=== PATIENT | female | born 1940 | race Caucasian/White ===

== ENCOUNTER 2019-01-13 09:36 | Emergency (ER) | payer OTHER ==
[~2019-01-13] VITALS: Ht 154.9 cm; Wt 54.4 kg
[2019-01-13] MEDS ORDERED: ONDANSETRON HCL 4 MG/2 ML VIAL IV ONE (10:15)
[2019-01-13 10:47] LABS: Hematocrit 28.1 % (36.0-46.0); Hemoglobin 9.5 g/dL (12.2-16.2); Mean Corpuscular Hemoglobin 32.3 pg (28.0-32.0); Mean Corpuscular Hgb Conc. 33.7 g/dL (32.0-36.0); Platelet Count (auto) 222 10^3/uL (140-450); Red Blood Cells 2.93 10^6/uL (4.0-5.20)
[2019-01-13 10:59] LABS: Alanine Aminotransferase 16 U/L (13-56); Albumin 2.5 g/dL (3.4-5.0); Anion Gap 8 (5-15); Aspartate Aminotransferase 26 U/L (15-37); BUN/Creatinine Ratio 17.7; Blood Alcohol < 3.0 mg/dL (0-5); Blood Urea Nitrogen 58 mg/dL (7-18); Calcium 9.7 mg/dL (8.5-10.1); Carbon Dioxide 25 mmol/L (21-32); Chloride 104 mmol/L (98-107); GFR African American 18 mL/min; GFR Non-African American 15 mL/min; Glucose 112 mg/dL (74-106); Magnesium 2.6 mg/dL (1.6-2.6); Potassium 4.2 mmol/L (3.5-5.1); Sodium 137 mmol/L (136-145)
[2019-01-13 11:04] LABS: Alkaline Phosphatase 99 U/L (45-117); Bilirubin, Total 0.5 mg/dL (0.2-1.0); Total Protein 6.3 g/dL (6.4-8.2)
[2019-01-13 11:14] LABS: Red Cell Distribution Width 21.2 % (11.8-14.3)
[2019-01-13 11:15] LABS: Basophils % (manual) 0 (0.0-2.0); Blast Cells 0; Eosinophils % (manual) 0 (0-7); Metamyelocytes % 0; Myelocytes % 0; Promyelocytes % 0; Reactive Lymphocytes 0
[2019-01-13 11:37] LABS: Band Neutrophils % (manual) 2; Lymphocytes % (manual) 16 (10.0-50.0); Monocytes % (manual) 7 (0-12)
[2019-01-13 13:06] LABS: Urine Bacteria NONE SEEN /hpf (None Seen); Urine Blood Negative /uL (Negative); Urine Specific Gravity 1.014 (1.001-1.035); Urine WBC 23 /hpf (0 - 5)
[2019-01-13 13:45] VITALS: BP 91/56
== END 2019-01-13 13:47 | disposition home or self-care (01) ==
LOC: EDBD 09:36 → ER 09:41
DX: E11.649 Type 2 diabetes mellitus with hypoglycemia without coma (principal); G93.41 Metabolic encephalopathy; D64.89 Other specified anemias; E11.22 Type 2 diabetes mellitus with diabetic chronic kidney disease; I12.9 Hypertensive chronic kidney disease with stage 1 through stage 4 chronic kidney disease, or unspecified chronic kidney disease; N18.4 Chronic kidney disease, stage 4 (severe); E11.21 Type 2 diabetes mellitus with diabetic nephropathy; E43 Unspecified severe protein-calorie malnutrition; N39.0 Urinary tract infection, site not specified; R07.9 Chest pain, unspecified; Z68.22 Body mass index [BMI] 22.0-22.9, adult
CPT/HCPCS: 36415; 70450; 71045; 80053; 80320; 81001; 82962; 83605; 83735; 84484; 85007; 85027; 87040; 87086; 93005; 94761; 96374; 99284; J2405

== ENCOUNTER 2019-01-26 14:02 | Inpatient (IN) | payer OTHER ==
[~2019-01-26] VITALS: Ht 152.4 cm; Wt 55.8 kg
[2019-01-26] MEDS ORDERED: SODIUM CHLORIDE 0.9% 1,000 ML IV ONE ×2 (15:05)
[2019-01-26 15:16] LABS: Eosinophils # (auto) 0.2 uL; Hemoglobin 7.2 g/dL (12.2-16.2); Monocytes # (auto) 0.4 uL; Nucleated Red Blood Cells % 0.1 %
[2019-01-26 15:17] LABS: Basophils # (auto) 0 uL; Basophils % (auto) 0.9 % (0.0-2.0); Eosinophils % (auto) 3.5 % (0.0-7.0); Hematocrit 22.1 % (36.0-46.0); Lymphocytes # (auto) 2.1 uL; Lymphocytes % (auto) 39.6 % (10.0-50.0); Mean Corpuscular Hemoglobin 33.1 pg (28.0-32.0); Mean Corpuscular Hgb Conc. 32.5 g/dL (32.0-36.0); Monocytes % (auto) 7.3 % (0.0-12.0); Neutrophils # (auto) 2.5 uL; Neutrophils % (auto) 48.7 % (37.0-80.0); Platelet Count (auto) 313 10^3/uL (140-450); Red Blood Cells 2.17 10^6/uL (4.0-5.20); White Blood Cell 5.2 10^3/uL (4.4-10.8)
[2019-01-26 15:23] LABS: Red Cell Distribution Width 22.8 % (11.8-14.3)
[2019-01-26 15:29] LABS: Albumin 2.3 g/dL (3.4-5.0); Anion Gap 11 (5-15); BUN/Creatinine Ratio 16.5; Calcium 8.5 mg/dL (8.5-10.1); Carbon Dioxide 19 mmol/L (21-32); Chloride 109 mmol/L (98-107); GFR African American 10 mL/min; GFR Non-African American 8 mL/min; Glucose 238 mg/dL (74-106); Magnesium 2.8 mg/dL (1.6-2.6); Sodium 139 mmol/L (136-145)
[2019-01-26 15:34] LABS: Alanine Aminotransferase 16 U/L (13-56); Alkaline Phosphatase 60 U/L (45-117); Aspartate Aminotransferase 30 U/L (15-37); Bilirubin, Total 0.3 mg/dL (0.2-1.0); Total Protein 5.7 g/dL (6.4-8.2)
[2019-01-26 15:41] LABS: Blood Urea Nitrogen 91 mg/dL (7-18); Potassium 5.8 mmol/L (3.5-5.1)
[2019-01-26] MEDS ORDERED: ACETAMINOPHEN 500 MG TAB PO PRN (18:30)
[2019-01-26] MEDS ORDERED: DEXTROSE (50%) 50ML SYRG IV PRN (18:30)
[2019-01-26] MEDS ORDERED: MORPHINE SULF INJ 2 MG/ML SYRINGE 1ML IV PRN ×2 (18:30)
[2019-01-26] MEDS ORDERED: HYDROcodone-ACET 5/325MG TAB PO PRN (18:30)
[2019-01-26] MEDS ORDERED: InsuLIN REG 1unit/0.01ml Soln (100units/ml) IV ONE (18:30)
[2019-01-26] MEDS ORDERED: CALCIUM CHL 100MG/ML 1,000 MG in D5W 5% 100 ML IV ONE (18:30)
[2019-01-26] MEDS ORDERED: NITROGLYCERIN 0.4 MG SL TAB SL PRN (18:30)
[2019-01-26] MEDS ORDERED: DEXTROSE (50%) 50ML SYRG IV ONE (18:30)
[2019-01-26] MEDS ORDERED: SODIUM BICARBONATE 8.4 % INJ 50ML VIAL IV ONE (18:30)
[2019-01-26] MEDS ORDERED: ONDANSETRON HCL 4 MG/2 ML VIAL IV PRN (18:30)
[2019-01-26] MEDS: SODIUM BICARBONATE 50ML VIAL 50 ML in SOD CHL 0.45% 1,000 ML IV SCH (21:00)
[2019-01-26 22:00] VITALS: BP 116/50
[2019-01-26] MEDS: ACCU-CHEK COMFORT CURVE STRIP VI SCH (22:00)
[2019-01-26] MEDS: InsuLIN REG 1unit/0.01ml Soln (100units/ml) SC SCH (22:00)
[2019-01-27] VITALS (10 sets, daily range): BP systolic 102–151; BP diastolic 35–73
--- NOTE | 2019-01-27 00:36 | NUR ---
IV insertion IV access obtained, via clean sterile technique by inserting 22 gauge catheter at Left AC after 2 attempts. IV secured properly. No trauma to site. Patient tolerated well.
--- NOTE | 2019-01-27 00:56 | NUR ---
URINE SAMPLE Addendum: 01/27/19 at 0056 by Demetrice Brenner RN URINE SAMPLE TO LAB
[2019-01-27 02:23] LABS: Urine Bacteria NONE SEEN /hpf (None Seen); Urine Blood Negative /uL (Negative); Urine Hyaline Cast FEW /lpf (0 - 2); Urine Specific Gravity 1.008 (1.001-1.035); Urine WBC 1 /hpf (0 - 5)
[2019-01-27 03:18] LABS: Creatinine, Urine 21.1 mg/dL (30.0-125.0)
[2019-01-27 05:43] LABS: Mean Corpuscular Hgb Conc. 33.3 g/dL (32.0-36.0); White Blood Cell 4.7 10^3/uL (4.4-10.8)
[2019-01-27 05:47] LABS: Hematocrit 18.8 % (36.0-46.0); Mean Corpuscular Hemoglobin 33.3 pg (28.0-32.0); Platelet Count (auto) 271 10^3/uL (140-450); Red Blood Cells 1.88 10^6/uL (4.0-5.20)
[2019-01-27 06:03] LABS: Calcium 8.9 mg/dL (8.5-10.1); Potassium 4.9 mmol/L (3.5-5.1)
[2019-01-27 06:05] LABS: BUN/Creatinine Ratio 17.9
[2019-01-27 06:07] LABS: Bilirubin, Total 0.3 mg/dL (0.2-1.0); Total Protein 4.9 g/dL (6.4-8.2)
[2019-01-27 06:08] LABS: Red Cell Distribution Width 22.1 % (11.8-14.3)
[2019-01-27 06:11] LABS: Hemoglobin 6.3 g/dL (12.2-16.2)
[2019-01-27] MEDS: ACCU-CHEK COMFORT CURVE STRIP VI SCH ×4 (06:13→21:37)
[2019-01-27] MEDS: InsuLIN REG 1unit/0.01ml Soln (100units/ml) SC SCH ×4 (06:13→21:37)
--- NOTE | 2019-01-27 06:13 | NUR ---
HOSPITALIST PAGED PATIENT WITH CRITICAL HEMOGLOBIN OF 6.3.
--- NOTE | 2019-01-27 06:14 | NUR ---
HOSPITALIST Rajeev COMER RETURNS CALL UPDATED HIM ON PATIENT'S CRITICAL HEMOGLOBIN OF 6.3. NEW ORDERS RECEIVED FOR TYPE AND SCREEN (STAT) AND TO TRANSFUSE 1 UNIT OF PRBC. ALL ORDERS READ BACK AND VERIFIED.
[2019-01-27 06:25] LABS: % Iron Saturation 36.9 % (15-50)
--- NOTE | 2019-01-27 06:40 | NUR ---
SPOKE TO HOSPITALIST CATHI AT [facility]. BLOOD CONSENTS SIGNED. UPDATED ON CRITICAL BUN OF 80, CREATININE 4.48. WILL PAGE WITH POTASSIUM RESULT IF GREATER THAN 4.5.
--- NOTE | 2019-01-27 06:48 | NUR ---
HOSPITALIST DEEPAD HOSPITALIST CATHI RETURNS CALL. UPDATED HIM ON PATIENT'S POTASSIUM LEVEL OF 4.9 THIS MORNING. NEW ORDERS RECEIVED, READ BACK AND VERIFIED.
[2019-01-27] MEDS ORDERED: SODIUM BICARBONATE 8.4 % INJ 50ML VIAL IV ONE (07:00)
[2019-01-27] MEDS ORDERED: DEXTROSE (50%) 50ML SYRG IV ONE (07:00)
[2019-01-27] MEDS ORDERED: InsuLIN REG 1unit/0.01ml Soln (100units/ml) IV ONE (07:00)
--- NOTE | 2019-01-27 07:50 | NUR ---
Opening Note Assumed care of patient, she is A & O x4, she is awake and alert at this time, lying comfortable, no s/s of distress, no complaints at this time. IV fluids running at 100 ml/hr and IV is intact. POC discussed with patient, will continue to monitor Q1h and PRN. Bed is in low, locked position, call light within reach.
[2019-01-27 08:21] LABS: Basophils % (manual) 0 (0.0-2.0); Blast Cells 0; Metamyelocytes % 0; Myelocytes % 0; Promyelocytes % 0; Reactive Lymphocytes 0
[2019-01-27 08:23] LABS: Band Neutrophils % (manual) 1; Eosinophils % (manual) 2 (0-7); Lymphocytes % (manual) 40 (10.0-50.0); Monocytes % (manual) 7 (0-12)
[2019-01-27] MEDS: FAMOTIDINE 20 MG TAB PO SCH (10:00)
[2019-01-27] MEDS: SODIUM BICARBONATE 50ML VIAL 50 ML in SOD CHL 0.45% 1,000 ML IV SCH ×2 (11:13→15:30)
--- NOTE | 2019-01-27 15:13 | NUR ---
Nutrition consult/Assessment Notes please see attached link for complete assessment Est. Needs BW [id number] kcal (25-30 kcal/kgBW), 51-56 gms pro (1.0-1.1 gms/kgBW r/t elev RFT severe hypoalb). Will continue to monitor pertinent labs and reassess nutrient need prn Addendum: 01/27/19 at [address] Amended: Links added.
--- NOTE | 2019-01-27 19:35 | NUR ---
Opening Shift Note Assumed care of patient, awake and alert oriented x4. No S/S of distress/SOB or pain noted. Bed is in lowest locked position with bed rails up x2 and call light is within reach of the patient. Instructed on POC and to call for assist PRN.
--- NOTE | 2019-01-27 21:30 | NUR ---
BLOOD PRODUCTS FINISHED: PATIENTS VITAL SIGNS ASSESSED. PATIENT TOLERATED WELL. NO S/S OF DISTRESS SOB OR PAIN NOTED AND PATIENT IS RESTING IN BED WITH BREATHS EVEN AND UNLABORED.
--- NOTE | 2019-01-27 23:51 | NUR ---
Family Contacts: Patients family members wanted their contacts on record. Antonio # [phone], Mainor son. Radha Nava Daughter, #[phone]
[2019-01-28] MEDS: SODIUM BICARBONATE 50ML VIAL 50 ML in SOD CHL 0.45% 1,000 ML IV SCH (03:09)
[2019-01-28 05:34] VITALS: BP 97/35
[2019-01-28] MEDS: ACCU-CHEK COMFORT CURVE STRIP VI SCH ×3 (06:09→18:09)
[2019-01-28] MEDS: InsuLIN REG 1unit/0.01ml Soln (100units/ml) SC SCH ×3 (06:09→17:00)
[2019-01-28 07:04] LABS: Albumin 1.8 g/dL (3.4-5.0); Calcium 7.8 mg/dL (8.5-10.1); Potassium 4.1 mmol/L (3.5-5.1)
[2019-01-28 07:08] LABS: BUN/Creatinine Ratio 19.2; Bilirubin, Total 0.3 mg/dL (0.2-1.0); Total Protein 4.7 g/dL (6.4-8.2)
[2019-01-28 08:06] VITALS: BP 112/42
[2019-01-28] MEDS: FAMOTIDINE 20 MG TAB PO SCH (11:28)
[2019-01-28] MEDS ORDERED: FURO40TA4 PO (11:50)
[2019-01-28] MEDS ORDERED: PIO30T PO (11:50)
[2019-01-28] MEDS ORDERED: METO25TA5 PO (11:50)
[2019-01-28] MEDS ORDERED: MULT-927 PO (11:50)
[2019-01-28] MEDS ORDERED: CYAN100056 PO (11:50)
[2019-01-28] MEDS ORDERED: ERGO2000 PO (11:50)
[2019-01-28] MEDS ORDERED: ASCO500T11 PO (11:50)
[2019-01-28] MEDS ORDERED: LISI10TA6 PO (11:50)
[2019-01-28] MEDS ORDERED: FERR27TA2 PO (11:50)
[2019-01-28] MEDS ORDERED: PANT40TA2 PO (11:50)
[2019-01-28] MEDS ORDERED: FOLI1TAB6 PO (11:50)
[2019-01-28 12:22] VITALS: BP 115/47
[2019-01-28] MEDS ORDERED: SEVELAMER 800 MG TAB PO ONE (13:15)
[2019-01-28 17:02] VITALS: BP 113/49
[2019-01-28] MEDS: SEVELAMER 800 MG TAB PO SCH (18:06)
--- NOTE | 2019-01-28 19:25 | NUR ---
Opening Shift Note Assumed care of patient, awake and alert. No S/S of distress/SOB or pain. Instructed on POC and to call for assist PRN, will continue to monitor for changes Q1hr and PRN.
[2019-01-28 21:30] VITALS: BP 118/55
[2019-01-29] MEDS ORDERED: SODIUM BICARBONATE 8.4 % INJ 50ML VIAL IV ONE (00:18)
[2019-01-29] MEDS: SODIUM BICARBONATE 50ML VIAL 50 ML in SOD CHL 0.45% 1,000 ML IV SCH ×2 (00:36→09:30)
[2019-01-29] MEDS: InsuLIN REG 1unit/0.01ml Soln (100units/ml) SC SCH ×3 (00:36→11:30)
[2019-01-29] MEDS: ACCU-CHEK COMFORT CURVE STRIP VI SCH ×3 (00:36→11:30)
[2019-01-29 04:41] VITALS: BP 109/47
[2019-01-29 06:20] LABS: Basophils # (auto) 0 uL; Eosinophils # (auto) 0.2 uL; Lymphocytes # (auto) 1.8 uL
[2019-01-29 06:22] LABS: Eosinophils % (auto) 4.3 % (0.0-7.0); Hematocrit 22.7 % (36.0-46.0); Hemoglobin 7.7 g/dL (12.2-16.2); Lymphocytes % (auto) 36.4 % (10.0-50.0); Mean Corpuscular Hemoglobin 32.7 pg (28.0-32.0); Mean Corpuscular Hgb Conc. 33.9 g/dL (32.0-36.0); Mean Corpuscular Volume 96.3 fL (80.0-100.0); Monocytes # (auto) 0.4 uL; Monocytes % (auto) 7.6 % (0.0-12.0); Neutrophils # (auto) 2.5 uL; Neutrophils % (auto) 50.7 % (37.0-80.0); Platelet Count (auto) 275 10^3/uL (140-450); Red Blood Cells 2.36 10^6/uL (4.0-5.20); White Blood Cell 4.9 10^3/uL (4.4-10.8)
[2019-01-29 06:35] LABS: Potassium 3.7 mmol/L (3.5-5.1)
[2019-01-29 06:44] LABS: Albumin 1.8 g/dL (3.4-5.0); BUN/Creatinine Ratio 19.7; Bilirubin, Total 0.4 mg/dL (0.2-1.0); Calcium 7.6 mg/dL (8.5-10.1); Total Protein 4.6 g/dL (6.4-8.2)
[2019-01-29 06:50] LABS: Red Cell Distribution Width 21.2 % (11.8-14.3)
[2019-01-29 08:00] VITALS: BP 106/68
--- NOTE | 2019-01-29 08:00 | NUR ---
Morning note patient resting in bed with even and unlabored respirations, no distress noted. Instructed patient on POC, fall precautions and to call for assistance. Patient verbalized understanding. Fall precautions in place with bed in lowest locked position and call light within reach. Patient able to turn self independently. Will continue to monitor q1hr & PRN.
[2019-01-29] MEDS: SEVELAMER 800 MG TAB PO SCH ×2 (08:39→12:00)
[2019-01-29] MEDS: FAMOTIDINE 20 MG TAB PO SCH (08:39)
--- NOTE | 2019-01-29 11:13 | NUR ---
was at bedside - Dr. Michele Blackwell Patient clear for discharge.
--- NOTE | 2019-01-29 12:38 | NUR ---
Discharge Discharge education and paperwork provided to the patient per MD's order. Patient verbalized understanding. IV removed with clean technique, catheter intact. Dressing applied. Patient tolerated well, no trauma to site. Telemonitor removed and returned. Respirations even and unlabored, no distress noted. Patient's spouse and son are at bedside to transport patient home. Patient's personal wheelchair at bedside. Instructed patient to collect all personal belongings. patient verbalized understanding. Instructed patient to notify staff once ready to depart from the unit. patient verbalized understanding.
--- NOTE | 2019-01-29 12:50 | NUR ---
Patient taken to private vehicle via wheelchair by family member with all personal belongings.
== END 2019-01-29 12:50 | disposition home or self-care (01) | DRG 682 ==
LOC: ER 14:06 → TELE 14:07 → TELE-WESTW 22:40
PROVIDERS: ADMIT Nurse Practitioner Acute Care; ATTEND Family Medicine
PROC: 30233N1 Transfusion of Nonautologous Red Blood Cells into Peripheral Vein, Percutaneous Approach (ICD-10-PCS; principal; 2019-01-27)
DX: N17.0 Acute kidney failure with tubular necrosis (principal); I50.33 Acute on chronic diastolic (congestive) heart failure; E43 Unspecified severe protein-calorie malnutrition; I13.0 Hypertensive heart and chronic kidney disease with heart failure and stage 1 through stage 4 chronic kidney disease, or unspecified chronic kidney disease; E87.2 Acidosis; I47.1 Supraventricular tachycardia; J98.11 Atelectasis; B85.2 Pediculosis, unspecified; N27.1 Small kidney, bilateral; E87.5 Hyperkalemia; D53.9 Nutritional anemia, unspecified; E11.22 Type 2 diabetes mellitus with diabetic chronic kidney disease; E83.39 Other disorders of phosphorus metabolism; I67.2 Cerebral atherosclerosis; I95.9 Hypotension, unspecified; N18.9 Chronic kidney disease, unspecified; Z79.84 Long term (current) use of oral hypoglycemic drugs; Z87.01 Personal history of pneumonia (recurrent); Z79.899 Other long term (current) drug therapy; Z68.24 Body mass index [BMI] 24.0-24.9, adult
CPT/HCPCS: 36415; 70450; 71045; 76775; 80053; 81001; 82270; 82306; 82570; 82728; 82962; 83036; 83540; 83550; 83735; 83970; 84100; 84133; 84300; 84484; 85007; 85025; 85027; 85045; 86850; 86900; 86901; 86920; 93005; G0378; J1815; J7060

== ENCOUNTER 2019-03-15 13:42 | Inpatient (IN) | payer OTHER ==
[~2019-03-15] VITALS: Ht 152.4 cm; Wt 52.1 kg
[~2019-03-15 13:42] MED LIST: ASCO500T11 PO; CYAN100056 PO; ERGO2000 PO; FERR27TA2 PO; FOLI1TAB6 PO; FURO40TA4 PO; LISI10TA6 PO; METO25TA5 PO; MULT-927 PO; PANT40TA2 PO; PIO30T PO
[2019-03-15 15:40] LABS: Lymphocytes # (auto) 2.4 uL; Platelet Count (auto) 271 10^3/uL (140-450); Red Cell Distribution Width 15.4 % (11.8-14.3); White Blood Cell 10.6 10^3/uL (4.4-10.8)
[2019-03-15 15:43] LABS: Basophils # (auto) 0.1 uL; Basophils % (auto) 0.5 % (0.0-2.0); Eosinophils # (auto) 0.1 uL; Eosinophils % (auto) 0.5 % (0.0-7.0); Hematocrit 37.8 % (36.0-46.0); Hemoglobin 12.1 g/dL (12.2-16.2); Lymphocytes % (auto) 22.6 % (10.0-50.0); Mean Corpuscular Hemoglobin 35.1 pg (28.0-32.0); Mean Corpuscular Hgb Conc. 32.1 g/dL (32.0-36.0); Mean Corpuscular Volume 109.4 fL (80.0-100.0); Monocytes # (auto) 0.4 uL; Monocytes % (auto) 4.1 % (0.0-12.0); Neutrophils # (auto) 7.7 uL; Neutrophils % (auto) 72.3 % (37.0-80.0); Red Blood Cells 3.46 10^6/uL (4.0-5.20)
[2019-03-15] MEDS ORDERED: MORPHINE SULFATE 4 MG/ML SYR/VIAL IV ONE (16:15)
[2019-03-15] MEDS ORDERED: ONDANSETRON HCL 4 MG/2 ML VIAL IV ONE (16:15)
[2019-03-15 16:52] LABS: Albumin 3.4 g/dL (3.4-5.0); Calcium 11.5 mg/dL (8.5-10.1)
[2019-03-15 16:55] LABS: BUN/Creatinine Ratio 37.1; Bilirubin, Total 0.3 mg/dL (0.2-1.0); Total Protein 7.4 g/dL (6.4-8.2)
[2019-03-15 16:58] LABS: Partial Thromboplastin Time 24.8 sec (23.64-32.05)
[2019-03-15 16:59] LABS: Potassium 9.2 mmol/L (3.5-5.1)
[2019-03-15 17:52] LABS: Albumin 3.5 g/dL (3.4-5.0); Calcium 11.7 mg/dL (8.5-10.1)
[2019-03-15 17:56] LABS: BUN/Creatinine Ratio 38.3; Bilirubin, Total 0.3 mg/dL (0.2-1.0); Total Protein 7.5 g/dL (6.4-8.2)
[2019-03-15 18:04] LABS: Potassium 9.1 mmol/L (3.5-5.1)
[2019-03-15] MEDS ORDERED: CALCIUM GLUC 4.65meq/50ml D5AE 50 ML IV ONE ×2 (18:15→20:15)
[2019-03-15] MEDS ORDERED: SODIUM BICARBONATE 8.4 % INJ 50ML VIAL IV ONE ×2 (18:15→20:15)
[2019-03-15] MEDS ORDERED: ALBUTEROL SULF 2.5 MG/0.5ML(0.5%) NEB SOLN HHN ONE (18:15)
[2019-03-15] MEDS ORDERED: NITROGLYCERIN 0.4 MG SL TAB SL PRN (20:15)
[2019-03-15] MEDS ORDERED: ALBUTEROL SULF 2.5 MG/0.5ML(0.5%) NEB SOLN NEB ONE (20:15)
[2019-03-15] MEDS ORDERED: DEXTROSE (50%) 50ML SYRG IV PRN (20:15)
[2019-03-15] MEDS ORDERED: SODIUM ZIRCONIUM CYCL 10 GM PAK PO ONE (20:15)
[2019-03-15] MEDS: SODIUM BICARBONATE 50ML VIAL 150 ML in D5W 5% 1,000 ML IV SCH (20:15)
[2019-03-15] MEDS ORDERED: SODIUM CHLORIDE 0.9% 1,000 ML IV ONE (20:15)
[2019-03-15] MEDS ORDERED: MORPHINE SULF INJ 2 MG/ML SYRINGE 1ML IV PRN (20:15)
[2019-03-15] MEDS ORDERED: DEXTROSE (50%) 50ML SYRG IV ONE (20:15)
[2019-03-15] MEDS ORDERED: InsuLIN REG 1unit/0.01ml Soln (100units/ml) IV ONE (20:15)
[2019-03-15] MEDS: PANTOPRAZOLE 40 MG/10 ML VIAL INJ IV SCH (22:00)
[2019-03-15] MEDS: InsuLIN REG 1unit/0.01ml Soln (100units/ml) SC SCH (22:00)
[2019-03-15] MEDS: ACCU-CHEK COMFORT CURVE STRIP VI SCH (22:00)
[2019-03-15] MEDS ORDERED: NOREPINEPHRINE 8 MG/250ML KIT 250 ML IV ONE (22:39)
[2019-03-15] MEDS: NOREPINEPHRINE 8 MG/250ML KIT 250 ML IV SCH (22:39)
[2019-03-15 23:26] LABS: BUN/Creatinine Ratio 34.4; Calcium 11.2 mg/dL (8.5-10.1)
[2019-03-15 23:28] LABS: Potassium 5.6 mmol/L (3.5-5.1)
[2019-03-16] MEDS ORDERED: SODIUM ZIRCONIUM CYCL 10 GM PAK PO ONE ×6 (00:15→03:15)
[2019-03-16] MEDS ORDERED: SODIUM ZIRCONIUM CYCL 10 GM PAK ONE (02:41)
[2019-03-16 05:44] LABS: Basophils # (auto) 0 uL; Eosinophils # (auto) 0.1 uL; Eosinophils % (auto) 0.7 % (0.0-7.0); Monocytes # (auto) 0.9 uL; Monocytes % (auto) 4.8 % (0.0-12.0); White Blood Cell 18.6 10^3/uL (4.4-10.8)
[2019-03-16 05:48] LABS: Basophils % (auto) 0.2 % (0.0-2.0); Hematocrit 28.9 % (36.0-46.0); Hemoglobin 9.7 g/dL (12.2-16.2); Lymphocytes # (auto) 2.1 uL; Lymphocytes % (auto) 11.5 % (10.0-50.0); Mean Corpuscular Hemoglobin 34.4 pg (28.0-32.0); Mean Corpuscular Hgb Conc. 33.6 g/dL (32.0-36.0); Mean Corpuscular Volume 102.6 fL (80.0-100.0); Neutrophils # (auto) 15.4 uL; Neutrophils % (auto) 82.8 % (37.0-80.0); Platelet Count (auto) 237 10^3/uL (140-450); Red Blood Cells 2.82 10^6/uL (4.0-5.20); Red Cell Distribution Width 14.3 % (11.8-14.3)
[2019-03-16 05:59] LABS: % Iron Saturation 21.8 % (15-50)
[2019-03-16 06:15] LABS: Potassium 5.4 mmol/L (3.5-5.1)
[2019-03-16 06:29] LABS: Albumin 2.7 g/dL (3.4-5.0); BUN/Creatinine Ratio 36.9; Bilirubin, Total 0.2 mg/dL (0.2-1.0); Calcium 10.8 mg/dL (8.5-10.1); Total Protein 5.8 g/dL (6.4-8.2)
[2019-03-16] MEDS: ACCU-CHEK COMFORT CURVE STRIP VI SCH ×4 (07:05→22:49)
[2019-03-16] MEDS: InsuLIN REG 1unit/0.01ml Soln (100units/ml) SC SCH ×4 (07:17→22:48)
[2019-03-16] MEDS: DOXYCYCLINE 100MG/250ML 250 ML IV SCH ×2 (08:09→20:00)
[2019-03-16] MEDS: PANTOPRAZOLE 40 MG/10 ML VIAL INJ IV SCH ×2 (10:24→22:48)
[2019-03-16 11:21] LABS: Urine Bacteria NONE SEEN /hpf (None Seen); Urine Blood Negative /uL (Negative); Urine Hyaline Cast FEW /lpf (0 - 2); Urine Specific Gravity 1.011 (1.001-1.035); Urine WBC 2 /hpf (0 - 5)
[2019-03-16 11:28] LABS: Sodium Urine 36 mmol/L (40-220)
[2019-03-16 11:32] LABS: Creatinine, Urine 81 mg/dL (30.0-125.0)
[2019-03-16] MEDS: SODIUM BICARBONATE 50ML VIAL 150 ML in D5W 5% 1,000 ML IV SCH (11:45)
[2019-03-16 14:33] LABS: Calcium 9.8 mg/dL (8.5-10.1); Potassium 4.5 mmol/L (3.5-5.1)
[2019-03-16 14:35] LABS: BUN/Creatinine Ratio 38.6
[2019-03-16] MEDS: SODIUM CHLORIDE 0.9% 1,000 ML IV SCH (15:21)
[2019-03-16 18:18] LABS: Basophils # (auto) 0.1 uL; Basophils % (auto) 0.5 % (0.0-2.0); Eosinophils # (auto) 0.8 uL; Eosinophils % (auto) 6.4 % (0.0-7.0); Hematocrit 29.2 % (36.0-46.0); Lymphocytes # (auto) 2.5 uL; Mean Corpuscular Hemoglobin 33.9 pg (28.0-32.0); Mean Corpuscular Hgb Conc. 34.2 g/dL (32.0-36.0); Mean Corpuscular Volume 99.1 fL (80.0-100.0); Monocytes # (auto) 0.7 uL; Monocytes % (auto) 5.8 % (0.0-12.0); Neutrophils % (auto) 66.3 % (37.0-80.0); Platelet Count (auto) 200 10^3/uL (140-450); Red Blood Cells 2.94 10^6/uL (4.0-5.20); Red Cell Distribution Width 14.2 % (11.8-14.3); White Blood Cell 12.1 10^3/uL (4.4-10.8)
[2019-03-16] MEDS: NOREPINEPHRINE 8 MG/250ML KIT 250 ML IV SCH (23:55)
[2019-03-17] MEDS: SODIUM CHLORIDE 0.9% 1,000 ML IV SCH ×2 (04:21→18:31)
[2019-03-17 05:18] LABS: Basophils # (auto) 0.1 uL; Eosinophils # (auto) 0.9 uL; Hemoglobin 9.8 g/dL (12.2-16.2); Lymphocytes # (auto) 2.6 uL; Monocytes # (auto) 0.5 uL; Neutrophils # (auto) 4.8 uL; Red Cell Distribution Width 13.9 % (11.8-14.3)
[2019-03-17 05:24] LABS: Basophils % (auto) 0.8 % (0.0-2.0); Eosinophils % (auto) 9.9 % (0.0-7.0); Hematocrit 27.8 % (36.0-46.0); Mean Corpuscular Hemoglobin 35.3 pg (28.0-32.0); Mean Corpuscular Hgb Conc. 35.4 g/dL (32.0-36.0); Mean Corpuscular Volume 99.6 fL (80.0-100.0); Monocytes % (auto) 6.2 % (0.0-12.0); Neutrophils % (auto) 54.1 % (37.0-80.0); Nucleated Red Blood Cells % 0.1 %; Platelet Count (auto) 189 10^3/uL (140-450); Red Blood Cells 2.79 10^6/uL (4.0-5.20); White Blood Cell 8.8 10^3/uL (4.4-10.8)
[2019-03-17 05:41] LABS: Calcium 10.1 mg/dL (8.5-10.1); Potassium 4.5 mmol/L (3.5-5.1)
[2019-03-17 05:43] LABS: BUN/Creatinine Ratio 40.4
[2019-03-17] MEDS: InsuLIN REG 1unit/0.01ml Soln (100units/ml) SC SCH ×4 (07:00→22:46)
[2019-03-17] MEDS: ACCU-CHEK COMFORT CURVE STRIP VI SCH ×4 (07:22→22:46)
[2019-03-17] MEDS: DOXYCYCLINE 100MG/250ML 250 ML IV SCH ×2 (09:12→21:02)
[2019-03-17] MEDS: PANTOPRAZOLE 40 MG/10 ML VIAL INJ IV SCH (10:00)
[2019-03-17] MEDS ORDERED: LIDOCAINE VISCOUS 2% 15ML UD ONE (10:02)
[2019-03-17] MEDS ORDERED: SODIUM CHLORIDE LOCK 10 ML ONE (10:02)
[2019-03-17] MEDS ORDERED: diphenhdrAMINE HCL 50 MG/1 ML VL ONE (10:02)
[2019-03-17] MEDS ORDERED: fentaNYL CITRATE 100 MCG/2 ML VL ONE (10:02)
[2019-03-17] MEDS ORDERED: MIDAZOLAM HCL 5 MG/ML-1ML VIAL ONE (10:02)
--- NOTE | 2019-03-17 11:25 | NUR ---
WOUND CARE NOTE: Wound care consult received from nursing. Patient is a 79 yo female admitted for hyperkalemia. Patient with a history of CHF, diabetes, pneumonia, chronic kidney disease and anemia. Patient is alert and denies pain. Patient seen with bedside RNOliva. Patient is currently getting a new IV placed, due to pulling out previous IV. Patient is NPO and is to have an EGD done today. Patient is currently in ER 18 holding for an ICU bed and is on an hospital bed. Per bedside RN, patient with sacral OPTIFOAM GENTLE dressing in place. No report of wounds. RN to call wound care post procedure if any wounds noted. Wound care team to follow due to high risk.
[2019-03-17 20:37] VITALS: BP 142/57
[2019-03-17 22:00] VITALS: BP 142/57
--- NOTE | 2019-03-17 22:04 | NUR ---
Telemetry admit from ER VLADIMIRDAMION Liu admitted to Telemetry unit. Patient oriented to TAIWO SEAY, juan RN, unit, room, bed, and unit policies regarding patient care and visiting hours. Patient now on continuous telemetry monitoring, tele box #25 and telemetry reading on arrival to unit is NSR 90's. Patient weighed by bed scale and encouraged to call if they need something. All questions and concerns addressed, patient verbalized understanding. Note: Wound to sacrum noted, purplish discoloration and open area noted, picture taken. Patient said wound has been there for a long time. Right forearm edematous and reddened.
[2019-03-17] MEDS: PANTOPRAZOLE 40 MG TAB PO SCH (22:45)
--- NOTE | 2019-03-17 23:40 | NUR ---
Med Rec Patient cannot recall the medications she takes. Will have family bring in list.
[2019-03-18 04:41] LABS: Eosinophils # (auto) 0.7 uL; Hemoglobin 9.2 g/dL (12.2-16.2); Lymphocytes # (auto) 1.8 uL; Monocytes # (auto) 0.4 uL; White Blood Cell 7.7 10^3/uL (4.4-10.8)
[2019-03-18 04:45] LABS: Basophils # (auto) 0 uL; Basophils % (auto) 0.5 % (0.0-2.0); Eosinophils % (auto) 9.6 % (0.0-7.0); Hematocrit 25.6 % (36.0-46.0); Lymphocytes % (auto) 23.3 % (10.0-50.0); Mean Corpuscular Hemoglobin 35.2 pg (28.0-32.0); Mean Corpuscular Hgb Conc. 35.8 g/dL (32.0-36.0); Mean Corpuscular Volume 98.4 fL (80.0-100.0); Monocytes % (auto) 4.8 % (0.0-12.0); Neutrophils # (auto) 4.8 uL; Neutrophils % (auto) 61.8 % (37.0-80.0); Platelet Count (auto) 163 10^3/uL (140-450); Red Blood Cells 2.61 10^6/uL (4.0-5.20)
[2019-03-18 05:05] LABS: BUN/Creatinine Ratio 37.9; Calcium 8.9 mg/dL (8.5-10.1); Potassium 4.1 mmol/L (3.5-5.1)
[2019-03-18 05:47] VITALS: BP 115/66
[2019-03-18] MEDS: InsuLIN REG 1unit/0.01ml Soln (100units/ml) SC SCH ×2 (06:17→12:43)
[2019-03-18] MEDS: SODIUM CHLORIDE 0.9% 1,000 ML IV SCH (06:17)
[2019-03-18] MEDS: ACCU-CHEK COMFORT CURVE STRIP VI SCH ×2 (06:28→12:43)
--- NOTE | 2019-03-18 07:30 | NUR ---
Opening Shift Note Assumed care of patient, PT resting in bed, respiration even and non-labored. No S/S of distress/SOB or pain. Bed in lowest position and locked with call light in reach. Instructed on POC and to call for assist PRN, will continue to monitor for changes Q1hr and PRN.
[2019-03-18 08:00] VITALS: BP 111/50
--- NOTE | 2019-03-18 08:40 | NUR ---
MD SRIKANTH MONTES AT BEDSIDE.
[2019-03-18 09:00] VITALS: BP 111/50
[2019-03-18] MEDS: DOXYCYCLINE 100MG/250ML 250 ML IV SCH (09:41)
[2019-03-18] MEDS: PANTOPRAZOLE 40 MG TAB PO SCH (09:41)
--- NOTE | 2019-03-18 11:00 | NUR ---
WOUND CARE NOTE: Wound care team into reassess patient's sacrum. Patient is alert and denies pain. Current Francisco score is 16. Patient states she has had reoccurring wound to sacrum. Patient able to turn with minimal assistance. Changed dressing to sacrum due to soiling from leaking lou catheter. Patient with a small 1x1cm open area to sacrum/coccyx. Surrounding periwound is red, tender and non blanching. No foul odor or drainage noted. Wound cleanse with NS, patted dry and ZGUARD applied and covered with foam dressing. Discussed POC with bedside RNLiz. RECOMMENDATIONS: Dietary consult; Turn q2hrs; Nursing to cleanse buttocks with mild soap and water, pat dry, apply ZGUARD and cover with OPTIFOAM GENTLE, change every three days and PRN soiling; wound care team to follow. Addendum: 03/18/19 at 1517 by JOE SMITH RN Amended: Links added.
[2019-03-18] MEDS ORDERED: PANT40TA2 PO (12:24)
--- NOTE | 2019-03-18 12:35 | NUR ---
MD SRIKANTH RODRIGUEZ AT BEDSIDE.
[2019-03-18 13:00] VITALS: BP 133/56
--- NOTE | 2019-03-18 14:50 | NUR ---
BHANDARI CATHETER REMOVAL BHANDARI REMOVED. PT TOLERATED WELL. PT EDUCATED ABOUT URINATION AFTER REMOVAL. PT VERBALIZED UNDERSTANDING
--- NOTE | 2019-03-18 15:10 | NUR ---
PT VOID PT VOIDED AFTER BHANDARI CATHETER REMOVAL
--- NOTE | 2019-03-18 15:17 | NUR ---
Discharge instructions given as ordered. Encourage to follow up with PMD as instructed. All questions and concerns addressed. Patient verbalized understanding. Medication reconciliation form completed and copy given to patient. IV removed with catheter intact, pressure dressing applied, lou catheter removed. Telemetry unit returned to ICU. Patient taken to vehicle via wheelchair with all personal belongings, accompanied by staff and family member. No distress noted at time of departure.
== END 2019-03-18 15:17 | disposition home or self-care (01) | DRG 377 ==
LOC: ER 13:42 → TELE 13:43 → TELE-CENTR 03-17 20:38
PROVIDERS: ADMIT Nurse Practitioner Acute Care; ATTEND Internal Medicine Nephrology
PROC: 02HV33Z Insertion of Infusion Device into Superior Vena Cava, Percutaneous Approach (ICD-10-PCS; 2019-03-15)
PROC: 0DB68ZX Excision of Stomach, Via Natural or Artificial Opening Endoscopic, Diagnostic (ICD-10-PCS; principal; 2019-03-17 11:15)
DX: K29.71 Gastritis, unspecified, with bleeding (principal); N17.0 Acute kidney failure with tubular necrosis; J98.11 Atelectasis; I13.0 Hypertensive heart and chronic kidney disease with heart failure and stage 1 through stage 4 chronic kidney disease, or unspecified chronic kidney disease; N18.4 Chronic kidney disease, stage 4 (severe); E87.5 Hyperkalemia; I70.0 Atherosclerosis of aorta; I50.9 Heart failure, unspecified; E11.22 Type 2 diabetes mellitus with diabetic chronic kidney disease; E83.52 Hypercalcemia; D53.9 Nutritional anemia, unspecified; J44.9 Chronic obstructive pulmonary disease, unspecified; Z79.84 Long term (current) use of oral hypoglycemic drugs; Z79.899 Other long term (current) drug therapy
CPT/HCPCS: 36415; 36556; 43239; 71045; 74176; 80048; 80053; 81001; 82570; 82962; 83036; 83540; 83550; 83690; 84100; 84300; 85025; 85610; 85730; 86850; 86900; 86901; 87040; 87086; 93005; 94640; 94761; 99291; 99292; C9113; G0378; J0610; J1642; J1815; J2250; J3490

== ENCOUNTER 2019-08-18 22:27 | Inpatient (IN) | payer OTHER ==
[~2019-08-18] VITALS: Ht 162.6 cm; Wt 51.6 kg
[~2019-08-18 22:27] MED LIST changes: +AMIO200T4 PO; +APIX5TAB PO; -ASCO500T11 PO; +CAR3125T PO; -CYAN100056 PO; -ERGO2000 PO; -LISI10TA6 PO; -METO25TA5 PO; -MULT-927 PO; -PIO30T PO; +POTA-220 PO
[2019-08-18] MEDS ORDERED: TETANUS-DIPTH-ACEL PERTUSSIS 0.5ML SYR Tdap IM ONE (23:15)
[2019-08-18 23:34] LABS: Hematocrit 34.5 % (36.0-46.0); Hemoglobin 11.7 g/dL (12.2-16.2); Mean Corpuscular Hemoglobin 32.9 pg (28.0-32.0); Mean Corpuscular Volume 96.8 fL (80.0-100.0); Platelet Count (auto) 251 10^3/uL (140-450); Red Blood Cells 3.56 10^6/uL (4.0-5.20); Red Cell Distribution Width 17.7 % (11.8-14.3); White Blood Cell 9.9 10^3/uL (4.4-10.8)
[2019-08-18 23:45] LABS: Basophils % (manual) 0 (0.0-2.0); Blast Cells 0; Metamyelocytes % 0; Myelocytes % 0; Promyelocytes % 0; Reactive Lymphocytes 0
[2019-08-18 23:50] LABS: INR 1.37 (0.9-1.15); Partial Thromboplastin Time 31.5 sec (23.64-32.05)
[2019-08-18 23:55] LABS: Albumin 2.9 g/dL (3.4-5.0); Calcium 8.2 mg/dL (8.5-10.1); Potassium 3.9 mmol/L (3.5-5.1)
[2019-08-18 23:57] LABS: BUN/Creatinine Ratio 19.8
[2019-08-19 00:09] LABS: Bilirubin, Total 0.4 mg/dL (0.2-1.0); Total Protein 6.9 g/dL (6.4-8.2)
[2019-08-19 01:08] LABS: Band Neutrophils % (manual) 1; Eosinophils % (manual) 2 (0-7); Lymphocytes % (manual) 13 (10.0-50.0); Monocytes % (manual) 5 (0-12)
[2019-08-19 02:17] LABS: Urine WBC None Seen /hpf (0 - 5)
[2019-08-19 02:34] LABS: Urine Bacteria FEW /hpf (None Seen); Urine Blood Negative /uL (Negative); Urine Hyaline Cast FEW /lpf (0 - 2); Urine Mucus FEW (None Seen)
[2019-08-19] MEDS ORDERED: NITROGLYCERIN 0.4 MG SL TAB SL PRN (04:30)
[2019-08-19] MEDS ORDERED: MORPHINE SULFATE 4 MG/ML SYR/VIAL IV PRN (04:30)
[2019-08-19] MEDS ORDERED: TEMAZEPAM 15 MG CAP PO PRN (04:30)
[2019-08-19] MEDS ORDERED: ONDANSETRON HCL 4 MG/2 ML VIAL IV PRN (04:30)
[2019-08-19] MEDS ORDERED: DEXTROSE (50%) 50ML SYRG IV PRN (04:30)
[2019-08-19] MEDS ORDERED: MORPHINE SULF INJ 2 MG/ML SYRINGE 1ML IV PRN (04:30)
[2019-08-19] MEDS ORDERED: ACETAMINOPHEN 325 MG TAB PO PRN (04:30)
[2019-08-19] MEDS: InsuLIN REG 1unit/0.01ml Soln (100units/ml) SC SCH ×4 (06:00→23:47)
[2019-08-19] MEDS: ACCU-CHEK COMFORT CURVE STRIP VI SCH ×4 (06:26→23:47)
[2019-08-19 08:29] LABS: Magnesium 2.3 mg/dL (1.6-2.6)
--- NOTE | 2019-08-19 09:25 | NUR ---
RECEIVED REPORT FROM LILI GORE.
--- NOTE | 2019-08-19 09:45 | NUR ---
MS admit from ER DAMION GILBERT Alexa admitted to tele/MS after SBAR received. Patient oriented to INDU SHRESTHA, RN primary RN, unit, room, bed, and unit policies regarding patient care and visiting hours. Patient weighed by bedscale and encouraged to call if they need something. All questions and concerns addressed, patient verbalized understanding.
--- NOTE | 2019-08-19 09:49 | NUR ---
I called to speak with primary nurse regarding order to transfer to higher level of care-nurse is in with patient and will give me a call back.
[2019-08-19 10:10] VITALS: BP 103/41
[2019-08-19 10:38] VITALS: BP 103/41
--- NOTE | 2019-08-19 10:40 | NUR ---
I called to speak with patient's primary nurse regarding the order to transfer to higher level of care-he is busy with another patient and will give me a call back.
[2019-08-19] MEDS: FOLIC ACID 1 MG TAB PO SCH (11:54)
[2019-08-19] MEDS: PANTOPRAZOLE 40 MG TAB PO SCH (11:55)
[2019-08-19] MEDS: CARVEDILOL 3.125 MG TAB PO SCH ×2 (11:55→21:44)
[2019-08-19] MEDS: FUROSEMIDE 40 MG TAB PO SCH (11:55)
--- NOTE | 2019-08-19 12:09 | NUR ---
I called Dr. Tovar's office and left message regarding order to transfer to higher level of care-awaiting return call.
--- NOTE | 2019-08-19 12:42 | NUR ---
I spoke with nurse Carmen to let him know that I have left a message with Dr. Tovar's office-and that I can not work on this transfer until I know exactly why we can't do the surgery here.
[2019-08-19 13:00] VITALS: BP 100/48
--- NOTE | 2019-08-19 15:01 | NUR ---
I called Dr Tovar and left message asking about the specific reason for transfer to higher level of care, needing to let facilities and the insurance know why surgery can't be done here.
--- NOTE | 2019-08-19 15:45 | NUR ---
1540 08/19/[address] Tovar regarding transfer to higher level of care order. Per Dr. Tovar due to patient previously having had surgery on the left hip, old hardware needs to be removed which requires instruments/equipment that we don't have available here-needs orthopedic surgery at a higher level of care. I called [facility] [phone] extension [phone] and spoke with Cyndee regarding the transfer order. Faxed requested information to [facility]-she will call me back with authorization number for [facility]. Per Cyndee I can reach out to [facility], [facility] and [facility]. I faxed transfer order/clinical packet to [facility].
--- NOTE | 2019-08-19 16:56 | NUR ---
I called [facility] ([phone]) and spoke with Radha, patient is on will call pending transfer to higher level of care. I faxed clinical packet/transfer request to [facility] as well as [facility]. I spoke with Kenan at the [facility] transfer center and provided her with additional clinical information as requested.
[2019-08-19 17:00] VITALS: BP 110/55
[2019-08-19] MEDS: HYDROcodone-ACET 5/325MG TAB PO PRN ×2 (17:43→22:21)
--- NOTE | 2019-08-19 20:00 | NUR ---
Opening Shift Note Assumed care of patient, awake and alert. No S/S of distress/SOB or pain. Instructed on POC and to call for assist PRN, will continue to monitor for changes Q1hr and PRN.
--- NOTE | 2019-08-19 20:00 | NUR ---
Refused to be reposition.
[2019-08-19 22:00] VITALS: BP 120/49
[2019-08-20 05:00] VITALS: BP 107/51
[2019-08-20] MEDS: InsuLIN REG 1unit/0.01ml Soln (100units/ml) SC SCH ×2 (05:11→12:33)
[2019-08-20] MEDS: ACCU-CHEK COMFORT CURVE STRIP VI SCH ×2 (05:11→12:32)
[2019-08-20 07:05] LABS: Hematocrit 33.2 % (36.0-46.0); Hemoglobin 11.1 g/dL (12.2-16.2); Mean Corpuscular Hemoglobin 33.6 pg (28.0-32.0); Mean Corpuscular Hgb Conc. 33.5 g/dL (32.0-36.0); Mean Corpuscular Volume 100.3 fL (80.0-100.0); Platelet Count (auto) 134 10^3/uL (140-450); Red Blood Cells 3.31 10^6/uL (4.0-5.20); Red Cell Distribution Width 18.1 % (11.8-14.3); White Blood Cell 9.8 10^3/uL (4.4-10.8)
[2019-08-20 07:11] LABS: Basophils % (manual) 0 (0.0-2.0); Blast Cells 0; Metamyelocytes % 0; Myelocytes % 0; Promyelocytes % 0; Reactive Lymphocytes 0
[2019-08-20 07:16] LABS: Albumin 2.4 g/dL (3.4-5.0); Calcium 8.6 mg/dL (8.5-10.1); Potassium 4.6 mmol/L (3.5-5.1)
[2019-08-20 07:20] LABS: BUN/Creatinine Ratio 23.1; Bilirubin, Total 0.8 mg/dL (0.2-1.0); Total Protein 6.7 g/dL (6.4-8.2)
--- NOTE | 2019-08-20 07:30 | NUR ---
Report given to Arthur Carmen, patient is resting and told that Nica from [facility] called last night asking what equipment that needs and [facility] does not have.
--- NOTE | 2019-08-20 07:30 | NUR ---
Opening Shift Note RECEIVED REPORT FROM NOC RN. Assumed care of patient, awake and alert. No S/S of distress/SOB or pain. BED IN LOWEST, LOCKED POSITION WITH SIDERAILS UP Px2 AND CALL LIGHT WITHIN REACH. Instructed on POC and to call for assist PRN, will continue to monitor for changes Q1hr and PRN.
[2019-08-20 08:07] LABS: Band Neutrophils % (manual) 1; Eosinophils % (manual) 4 (0-7); Lymphocytes % (manual) 12 (10.0-50.0); Monocytes % (manual) 10 (0-12)
[2019-08-20 09:00] VITALS: BP 91/38
--- NOTE | 2019-08-20 09:26 | NUR ---
0920 08/20/19 I called [facility] Transfer Center [phone] and spoke with Monica regarding the need to transfer this patient to higher level of care. Provided her with contact information for Dr. Tovar as well as the nurse's station. Re-faxed clinical packet to [phone]).
[2019-08-20] MEDS: FUROSEMIDE 40 MG TAB PO SCH (10:00)
[2019-08-20] MEDS: CARVEDILOL 3.125 MG TAB PO SCH (10:00)
--- NOTE | 2019-08-20 10:01 | NUR ---
I called the [facility] Transfer Center ([facility]) and left message asking about bed availability. I faxed transfer request/clinical packet to [facility].
[2019-08-20] MEDS: PANTOPRAZOLE 40 MG TAB PO SCH (10:34)
[2019-08-20] MEDS: FOLIC ACID 1 MG TAB PO SCH (10:34)
--- NOTE | 2019-08-20 11:09 | NUR ---
I received a call from Monika at the [facility] transfer center-provided her with contact information for Dr. Tovar-she will have her orthopedic doctor connect with him and she will give me a call back.
--- NOTE | 2019-08-20 11:45 | NUR ---
I spoke with the [facility] [phone] ([facility])-provided him with contact information for Dr. Tovar and the nurse's station. Faxed requested clinical items to [phone]. I received a call from Caitlyn at [facility] letting me know that they are at capacity and not accepting patients for transfer outside of [facility].
[2019-08-20 12:52] VITALS: BP 104/46
--- NOTE | 2019-08-20 14:06 | NUR ---
I received a call from Monika at the [facility] Transfer center, she said per Dr. Tovar cancel transfer request to [facility] because patient has been accepted at [facility].
[2019-08-20] MEDS ORDERED: SODIUM CHLORIDE 0.9% 1,000 ML IV SCH (15:15)
--- NOTE | 2019-08-20 16:02 | NUR ---
I called [facility] ([phone]) and spoke with Yifan, patient remains on will-call pending transfer to [facility] ([facility] authorization number [id number]). Authorization number for [facility] is [id number].
--- NOTE | 2019-08-20 16:16 | NUR ---
Patient will be going to [facility] room 650A, accepting MD is Dr. Brooke-nurse to call report to [phone] mushroom picker time 1800-I relayed this information to nurse Carmen.
[2019-08-20 16:36] VITALS: BP 103/46
--- NOTE | 2019-08-20 17:25 | NUR ---
PATIENT'S DAUGHTER, JETT, NOTIFIED OF PATIENT TRANSFER TO [facility].
[2019-08-20] MEDS: HYDROcodone-ACET 5/325MG TAB PO PRN (17:39)
--- NOTE | 2019-08-20 18:06 | NUR ---
[facility] AT BEDSIDE FOR TRANSPORT.
--- NOTE | 2019-08-20 18:12 | NUR ---
Discharge Transfers Patient is being transferred to [facility]. Patient is to follow up with accepting doctor at the receiving facility.
[2019-08-21] MEDS ORDERED: AMIODARONE HCL 200 MG TAB PO SCH (10:00)
== END 2019-08-20 18:15 | disposition short-term general hospital (02) | DRG 535 ==
LOC: EDUNIT# 22:27 → EDBD 22:27 → ER 22:29 → WEST WING 08-19 10:21
PROVIDERS: ADMIT Nurse Practitioner; ATTEND Internal Medicine
DX: S72.012A Unspecified intracapsular fracture of left femur, initial encounter for closed fracture (principal); N17.0 Acute kidney failure with tubular necrosis; I50.32 Chronic diastolic (congestive) heart failure; I13.0 Hypertensive heart and chronic kidney disease with heart failure and stage 1 through stage 4 chronic kidney disease, or unspecified chronic kidney disease; E44.0 Moderate protein-calorie malnutrition; W18.30XA Fall on same level, unspecified, initial encounter; N18.3 Chronic kidney disease, stage 3 (moderate); D64.9 Anemia, unspecified; I49.5 Sick sinus syndrome; I48.0 Paroxysmal atrial fibrillation; E11.22 Type 2 diabetes mellitus with diabetic chronic kidney disease; Z95.0 Presence of cardiac pacemaker; Y93.9 Activity, unspecified; Y92.009 Unspecified place in unspecified non-institutional (private) residence as the place of occurrence of the external cause; Z79.4 Long term (current) use of insulin; Y93.89 Activity, other specified; Y92.098 Other place in other non-institutional residence as the place of occurrence of the external cause; Y99.8 Other external cause status; W19.XXXA Unspecified fall, initial encounter
CPT/HCPCS: 36415; 71045; 73502; 80053; 81001; 82962; 83735; 83880; 84484; 85007; 85027; 85610; 85730; 90715; G0378; J1815; J2405

== ENCOUNTER 2019-12-22 07:55 | Inpatient (IN) | payer OTHER ==
[~2019-12-22] VITALS: Ht 154.9 cm; Wt 64.1 kg
[2019-12-22] MEDS ORDERED: SODIUM CHLORIDE 0.9% 1,000 ML IV ONE ×4 (08:30→21:00)
[2019-12-22 08:40] LABS: Basophils # (auto) 0.1 10 ^3/uL (0-0.2)
[2019-12-22 08:42] LABS: Basophils % (auto) 0.2 % (0.0-2.0); Eosinophils # (auto) 0.1 10 ^3/uL (0-0.8); Eosinophils % (auto) 0.3 % (0.0-7.0); Hematocrit 25.8 % (36.0-46.0); Hemoglobin 8.1 g/dL (12.2-16.2); Lymphocytes # (auto) 1.7 10 ^3/uL (0.4-5.4); Lymphocytes % (auto) 7.7 % (10.0-50.0); Mean Corpuscular Hemoglobin 29.8 pg (28.0-32.0); Mean Corpuscular Hgb Conc. 31.5 g/dL (32.0-36.0); Mean Corpuscular Volume 94.7 fL (80.0-100.0); Monocytes # (auto) 0.8 10 ^3/uL (0-1.3); Monocytes % (auto) 3.6 % (0.0-12.0); Neutrophils # (auto) 19.6 10 ^3/uL (1.6-8.6); Neutrophils % (auto) 88.2 % (37.0-80.0); Platelet Count (auto) 425 10^3/uL (140-450); Red Blood Cells 2.73 10^6/uL (4.0-5.20); White Blood Cell 22.2 10^3/uL (4.4-10.8)
[2019-12-22 08:48] LABS: Albumin 1.8 g/dL (3.4-5.0); Chloride 103 mmol/L (98-107); Potassium 5.3 mmol/L (3.5-5.1); Sodium 132 mmol/L (136-145)
[2019-12-22 08:57] LABS: Alanine Aminotransferase 14 U/L (13-56); Alkaline Phosphatase 87 U/L (45-117); Anion Gap 10 (5-15); Aspartate Aminotransferase 24 U/L (15-37); BUN/Creatinine Ratio 24.2; Bilirubin, Total 0.4 mg/dL (0.2-1.0); Blood Urea Nitrogen 75 mg/dL (7-18); Calcium 8.1 mg/dL (8.5-10.1); Carbon Dioxide 19 mmol/L (21-32); GFR African American 19 mL/min; GFR Non-African American 15 mL/min; Glucose 150 mg/dL (74-106); Magnesium 2.2 mg/dL (1.6-2.6); Total Protein 5.4 g/dL (6.4-8.2)
[2019-12-22] MEDS ORDERED: NOREPINEPHRINE 8 MG/250ML KIT 250 ML IV ONE (09:01)
[2019-12-22] MEDS ORDERED: cefTRIAXone 1GM/50ML D5W 50 ML IV ONE (09:15)
[2019-12-22] MEDS: NOREPINEPHRINE 8 MG/250ML KIT 250 ML IV SCH ×4 (09:37→20:13)
[2019-12-22 10:24] LABS: Urine WBC None Seen /hpf (0 - 5)
[2019-12-22 11:02] LABS: Urine Bacteria NONE SEEN /hpf (None Seen); Urine Blood Negative /uL (Negative); Urine Hyaline Cast FEW /lpf (0 - 2); Urine Specific Gravity 1.021 (1.001-1.035)
[2019-12-22] MEDS ORDERED: FUROSEMIDE 20 MG/2 ML VIAL IV ONE (13:00)
[2019-12-22] MEDS ORDERED: FENO145T27 (13:28)
[2019-12-22] MEDS ORDERED: CARV3.1240 (13:28)
[2019-12-22] MEDS ORDERED: LINA5TAB (13:28)
[2019-12-22] MEDS ORDERED: MET25T (13:28)
[2019-12-22] MEDS ORDERED: PANT40T (13:28)
[2019-12-22] MEDS ORDERED: ALBUMIN 25% 50 ML IV ONE ×2 (13:45→21:00)
[2019-12-22] MEDS ORDERED: DEXTROSE (50%) 50ML SYRG IV ONE (15:45)
[2019-12-22] MEDS ORDERED: MORPHINE SULF INJ 2 MG/ML SYRINGE 1ML IV PRN (15:45)
[2019-12-22] MEDS ORDERED: SODIUM ZIRCONIUM CYCL 10 GM PAK PO ONE (15:45)
[2019-12-22] MEDS ORDERED: LORazepam 2MG/ML-1ML VIAL IV PRN (15:45)
[2019-12-22] MEDS ORDERED: ALBUTEROL SULF 2.5 MG/0.5ML(0.5%) NEB SOLN NEB ONE (15:45)
[2019-12-22] MEDS ORDERED: VANCOMYCIN PER PHARMACY 1,000 MG IV SCH (15:45)
[2019-12-22] MEDS ORDERED: InsuLIN REG 1unit/0.01ml Soln (100units/ml) IV ONE (15:45)
[2019-12-22] MEDS ORDERED: NITROGLYCERIN 0.4 MG SL TAB SL PRN (15:45)
[2019-12-22] MEDS ORDERED: SODIUM BICARBONATE 8.4% INJ 50ML SYRINGE IV ONE (15:45)
[2019-12-22] MEDS ORDERED: CALCIUM CHL 100MG/ML 1,000 MG in D5W 5% 100 ML IV ONE (15:45)
[2019-12-22] MEDS ORDERED: ALBUTEROL SULF 2.5 MG/0.5ML(0.5%) NEB SOLN ONE (15:54)
[2019-12-22] MEDS ORDERED: DOPamine 1600MCG/ML D5W 250 ML IV ONE ×2 (16:00→16:03)
[2019-12-22] MEDS ORDERED: VANCOMYCIN 750mg/250ml 250 ML IV ONE (16:15)
[2019-12-22 16:40] LABS: INR 1.64 (0.9-1.15); Partial Thromboplastin Time 39.6 sec (23.64-32.05)
[2019-12-22] MEDS: HYDROCORTISONE SOD SUCC 100 MG/2ML INJ VIAL IV SCH (17:04)
[2019-12-22] MEDS ORDERED: ONDANSETRON HCL 4 MG/2 ML VIAL ONE (17:07)
[2019-12-22] MEDS: DOBUTamine 1000MCG/ML 250 ML IV SCH (17:22)
[2019-12-22] MEDS ORDERED: ONDANSETRON HCL 4 MG/2 ML VIAL IV ONE (17:30)
[2019-12-22] MEDS ORDERED: PIPERACILLIN-TAZOB 3.375GM 3.375 GM in D5W 5% 100 ML IV SCH (18:00)
[2019-12-22] MEDS: PIPERACILLIN-TAZOB 2.25GM 50 ML IV SCH (18:00)
[2019-12-22 18:16] LABS: BUN/Creatinine Ratio 24.1; Calcium 7.5 mg/dL (8.5-10.1); Potassium 5.3 mmol/L (3.5-5.1)
[2019-12-22] MEDS: IPRATROPIUM BROM 0.5 MG/2.5ML INH SOL NEB SCH ×2 (18:16→22:22)
[2019-12-22] MEDS: DOPamine 1600MCG/ML D5W 250 ML IV SCH (19:55)
[2019-12-22] MEDS: SODIUM ZIRCONIUM CYCL 10 GM PAK PO SCH (22:00)
[2019-12-22] MEDS: FAMOTIDINE (10MG/ML) 2ML VL IV SCH (22:00)
[2019-12-22 23:48] VITALS: BP 91/45
[2019-12-23] VITALS (72 sets, daily range): BP systolic 78–166; BP diastolic 23–91
[2019-12-23] MEDS ORDERED: SODIUM BICARBONATE 50ML VIAL 100 ML in SOD CHL 0.45% 1,000 ML IV SCH ×2 (00:45→11:45)
[2019-12-23] MEDS: DOPamine 1600MCG/ML D5W 250 ML IV SCH ×2 (00:58→06:00)
[2019-12-23] MEDS ORDERED: SODIUM BICARBONATE 8.4 % INJ 50ML VIAL IV ONE ×2 (01:06→18:30)
[2019-12-23] MEDS ORDERED: ALBUMIN 5% 250 ML IV ONE (01:15)
[2019-12-23] MEDS: NOREPINEPHRINE 8 MG/250ML KIT 250 ML IV SCH ×4 (01:30→20:37)
[2019-12-23] MEDS: DOBUTamine 1000MCG/ML 250 ML IV SCH ×4 (01:50→23:00)
[2019-12-23] MEDS: HYDROCORTISONE SOD SUCC 100 MG/2ML INJ VIAL IV SCH ×4 (02:08→18:56)
[2019-12-23] MEDS: IPRATROPIUM BROM 0.5 MG/2.5ML INH SOL NEB SCH ×6 (02:27→22:00)
[2019-12-23] MEDS ORDERED: VASOPRESSIN 20 UNIT/ML ONE (03:23)
[2019-12-23] MEDS: VASOPRESSIN 50 UNITS in D5W 5% 247.5 ML IV SCH (03:39)
[2019-12-23] MEDS: SODIUM ZIRCONIUM CYCL 10 GM PAK PO SCH ×2 (06:00→14:00)
[2019-12-23] MEDS ORDERED: FUROSEMIDE 20 MG/2 ML VIAL IV SCH (06:00)
[2019-12-23] MEDS: PIPERACILLIN-TAZOB 2.25GM 50 ML IV SCH ×4 (06:54→18:55)
[2019-12-23] MEDS ORDERED: FERROUS SULFATE 325 MG TAB PO SCH (08:00)
[2019-12-23 08:02] LABS: Hemoglobin 7.2 g/dL (12.2-16.2)
[2019-12-23 08:04] LABS: Hematocrit 22.7 % (36.0-46.0); Mean Corpuscular Hemoglobin 30.3 pg (28.0-32.0); Mean Corpuscular Hgb Conc. 31.6 g/dL (32.0-36.0); Mean Corpuscular Volume 95.9 fL (80.0-100.0); Platelet Count (auto) 488 10^3/uL (140-450); Red Blood Cells 2.37 10^6/uL (4.0-5.20); White Blood Cell 25.9 10^3/uL (4.4-10.8)
[2019-12-23 08:07] LABS: Band Neutrophils % (manual) 0; Basophils % (manual) 0 (0.0-2.0); Blast Cells 0; Eosinophils % (manual) 0 (0-7); Metamyelocytes % 0; Promyelocytes % 0; Reactive Lymphocytes 0
[2019-12-23 08:19] LABS: INR 1.95 (0.9-1.15); Partial Thromboplastin Time 46.7 sec (23.64-32.05)
[2019-12-23 08:24] LABS: Potassium 3.9 mmol/L (3.5-5.1)
[2019-12-23 08:31] LABS: Albumin 2.1 g/dL (3.4-5.0); BUN/Creatinine Ratio 21.4; Bilirubin, Total 0.5 mg/dL (0.2-1.0); Calcium 7.1 mg/dL (8.5-10.1); Magnesium 1.8 mg/dL (1.6-2.6); Phosphorus 3.9 mg/dL (2.5-4.90); Total Protein 5.5 g/dL (6.4-8.2)
[2019-12-23 08:37] LABS: Lymphocytes % (manual) 2 (10.0-50.0); Monocytes % (manual) 5 (0-12); Myelocytes % 1
[2019-12-23] MEDS ORDERED: APIXABAN 2.5 MG TAB PO SCH (10:00)
[2019-12-23] MEDS ORDERED: CARVEDILOL 3.125 MG TAB PO SCH (10:00)
[2019-12-23] MEDS ORDERED: ENOXAPARIN SOD 30 MG/0.3 ML SYRINGE SC SCH (10:00)
[2019-12-23] MEDS ORDERED: DIGOXIN (250MCG/ML) 2 ML AMPULE IV ONE (10:30)
[2019-12-23] MEDS: AMIODARONE HCL 200 MG TAB PO SCH (10:48)
[2019-12-23] MEDS: DOCUSATE SOD 100 MG CAP PO SCH ×2 (10:48→22:00)
[2019-12-23] MEDS: FAMOTIDINE (10MG/ML) 2ML VL IV SCH (10:49)
[2019-12-23] MEDS ORDERED: DEXTROSE (50%) 50ML SYRG IV PRN ×2 (11:15→12:00)
[2019-12-23] MEDS ORDERED: ACCU-CHEK COMFORT CURVE STRIP VI SCH (11:30)
[2019-12-23] MEDS ORDERED: InsuLIN REG 1unit/0.01ml Soln (100units/ml) SC SCH (11:30)
[2019-12-23] MEDS: ACCU-CHEK COMFORT CURVE STRIP VI SCH ×4 (12:00→23:44)
[2019-12-23] MEDS ORDERED: VANCOMYCIN 500 MG in D5W 5% 100 ML IV ONE (12:00)
[2019-12-23] MEDS ORDERED: INSULIN LANTUS (GLARGINE) 1 /0.01ml (100units/ml) SC ONE (12:00)
[2019-12-23 12:01] LABS: Urine Bacteria FEW /hpf (None Seen); Urine Blood TRACE /uL (Negative); Urine Hyaline Cast FEW /lpf (0 - 2); Urine WBC 2 /hpf (0 - 5)
[2019-12-23 12:22] LABS: Protein, Urine 25.2 mg/dL (0.0-11.9)
[2019-12-23] MEDS: ALBUMIN 25% 100 ML IV SCH ×2 (12:42→19:51)
[2019-12-23] MEDS: InsuLIN REG 1unit/0.01ml Soln (100units/ml) SC SCH ×5 (12:43→23:47)
[2019-12-23] MEDS ORDERED: LINEZOLID 600MG/300ML 300 ML IV ONE (13:00)
[2019-12-23] MEDS: SODIUM FERR GLUC 62.5MG/5ML 125 MG in SODIUM CHL 0.9% 100 ML IV SCH (15:56)
[2019-12-23] MEDS: ETOMIDATE (2MG/ML) 20ML VIAL IV ONE ×2 (18:13→18:29)
[2019-12-23] MEDS: SUCCINYLCHOLINE CHLORIDE 20 MG/ML 10ML VIAL IV ONE ×2 (18:14→18:29)
[2019-12-23] MEDS ORDERED: MIDAZOLAM DRIP 50 mg/50mL 50 ML IV ONE (18:21)
[2019-12-23] MEDS: MIDAZOLAM DRIP 50 mg/50mL 50 ML IV SCH (18:30)
[2019-12-23] MEDS ORDERED: SUCCINYLCHOLINE CHLORIDE 20 MG/ML 10ML VIAL IV ONE (19:45)
[2019-12-23] MEDS ORDERED: ETOMIDATE (2MG/ML) 20ML VIAL IV ONE (19:45)
[2019-12-23] MEDS: LINEZOLID 600MG/300ML 300 ML IV SCH (20:40)
[2019-12-23] MEDS: INSULIN LANTUS (GLARGINE) 1 /0.01ml (100units/ml) SC SCH (21:40)
[2019-12-23] MEDS: SODIUM BICARBONATE 50ML VIAL 150 ML in SOD CHL 0.45% 1,000 ML IV SCH (23:42)
[2019-12-24] VITALS (105 sets, daily range): BP systolic 74–152; BP diastolic 40–83
[2019-12-24] MEDS: HYDROCORTISONE SOD SUCC 100 MG/2ML INJ VIAL IV SCH ×4 (00:27→17:54)
[2019-12-24] MEDS: PIPERACILLIN-TAZOB 2.25GM 50 ML IV SCH ×4 (00:28→17:54)
[2019-12-24] MEDS: IPRATROPIUM BROM 0.5 MG/2.5ML INH SOL NEB SCH ×6 (02:12→22:25)
[2019-12-24] MEDS: VASOPRESSIN 50 UNITS in D5W 5% 247.5 ML IV SCH (03:15)
[2019-12-24] MEDS: ALBUMIN 25% 100 ML IV SCH (03:45)
[2019-12-24] MEDS: InsuLIN REG 1unit/0.01ml Soln (100units/ml) SC SCH ×5 (04:00→22:00)
[2019-12-24] MEDS: ACCU-CHEK COMFORT CURVE STRIP VI SCH ×4 (04:00→18:04)
[2019-12-24 04:37] LABS: Hemoglobin 7.7 g/dL (12.2-16.2)
[2019-12-24 04:40] LABS: Hematocrit 23.9 % (36.0-46.0); Mean Corpuscular Hemoglobin 30.1 pg (28.0-32.0); Mean Corpuscular Hgb Conc. 32.4 g/dL (32.0-36.0); Mean Corpuscular Volume 92.9 fL (80.0-100.0); Platelet Count (auto) 404 10^3/uL (140-450); Red Blood Cells 2.57 10^6/uL (4.0-5.20); Red Cell Distribution Width 16.5 % (11.8-14.3); White Blood Cell 21.8 10^3/uL (4.4-10.8)
[2019-12-24 04:58] LABS: Basophils % (manual) 0 (0.0-2.0); Blast Cells 0; Eosinophils % (manual) 0 (0-7); Metamyelocytes % 0; Myelocytes % 0; Promyelocytes % 0; Reactive Lymphocytes 0
[2019-12-24 05:01] LABS: Calcium 6.9 mg/dL (8.5-10.1)
[2019-12-24 05:05] LABS: BUN/Creatinine Ratio 23.2
[2019-12-24 05:24] LABS: Potassium 2.6 mmol/L (3.5-5.1)
[2019-12-24 05:32] LABS: Band Neutrophils % (manual) 4; Lymphocytes % (manual) 4 (10.0-50.0); Monocytes % (manual) 2 (0-12)
[2019-12-24] MEDS: POTASSIUM CHL 20MEQ/100ML 100 ML IV SCH ×2 (06:37→08:30)
[2019-12-24] MEDS: DOBUTamine 1000MCG/ML 250 ML IV SCH (08:31)
[2019-12-24] MEDS: SODIUM BICARBONATE 50ML VIAL 150 ML in SOD CHL 0.45% 1,000 ML IV SCH (08:40)
[2019-12-24] MEDS: INSULIN LANTUS (GLARGINE) 1 /0.01ml (100units/ml) SC SCH (10:00)
[2019-12-24] MEDS: DOCUSATE SOD 100 MG CAP PO SCH ×2 (10:00→22:00)
[2019-12-24] MEDS: MIDAZOLAM DRIP 50 mg/50mL 50 ML IV SCH ×3 (10:19→21:00)
[2019-12-24] MEDS: LINEZOLID 600MG/300ML 300 ML IV SCH ×2 (10:21→22:00)
[2019-12-24] MEDS: FAMOTIDINE (10MG/ML) 2ML VL IV SCH (10:21)
[2019-12-24] MEDS: AMIODARONE HCL 200 MG TAB PO SCH (10:37)
[2019-12-24] MEDS ORDERED: Jevity 1.2 Cal/Fiber 1 Liter GT SCH (11:45)
[2019-12-24] MEDS ORDERED: DEXTROSE (50%) 50ML SYRG IV PRN (11:45)
[2019-12-24] MEDS: DOPamine 1600MCG/ML D5W 250 ML IV SCH (13:15)
[2019-12-24] MEDS: SOD CHL 0.9%/ KCL 40MEQ 1,000 ML IV SCH (13:15)
[2019-12-24] MEDS: SODIUM FERR GLUC 62.5MG/5ML 125 MG in SODIUM CHL 0.9% 100 ML IV SCH (13:34)
[2019-12-24 13:58] LABS: Hematocrit 21.3 % (36.0-46.0)
[2019-12-24] MEDS ORDERED: POTASSIUM EFFERVESENT TAB 25 MEQ GT ONE (15:00)
[2019-12-24] MEDS: NOREPINEPHRINE 8 MG/250ML KIT 250 ML IV SCH (17:55)
[2019-12-24 21:46] LABS: Calcium 6.7 mg/dL (8.5-10.1); Potassium 4.8 mmol/L (3.5-5.1)
[2019-12-24 21:50] LABS: BUN/Creatinine Ratio 22.7
[2019-12-25] VITALS (102 sets, daily range): BP systolic 81–142; BP diastolic 0–73
[2019-12-25] MEDS: MIDAZOLAM DRIP 50 mg/50mL 50 ML IV SCH ×5 (01:37→22:00)
[2019-12-25] MEDS: IPRATROPIUM BROM 0.5 MG/2.5ML INH SOL NEB SCH ×6 (02:14→22:15)
[2019-12-25] MEDS: VASOPRESSIN 50 UNITS in D5W 5% 247.5 ML IV SCH (03:15)
[2019-12-25] MEDS: SOD CHL 0.9%/ KCL 40MEQ 1,000 ML IV SCH (04:18)
[2019-12-25 04:36] LABS: Hemoglobin 9.9 g/dL (12.2-16.2); Red Blood Cells 3.23 10^6/uL (4.0-5.20); Red Cell Distribution Width 15.9 % (11.8-14.3)
[2019-12-25 04:39] LABS: Hematocrit 29.6 % (36.0-46.0); Mean Corpuscular Hemoglobin 30.5 pg (28.0-32.0); Mean Corpuscular Hgb Conc. 33.4 g/dL (32.0-36.0); Mean Corpuscular Volume 91.5 fL (80.0-100.0); Platelet Count (auto) 460 10^3/uL (140-450); White Blood Cell 21.9 10^3/uL (4.4-10.8)
[2019-12-25 04:59] LABS: Potassium 4.4 mmol/L (3.5-5.1)
[2019-12-25 05:03] LABS: Calcium 7.1 mg/dL (8.5-10.1)
[2019-12-25 05:10] LABS: Basophils % (manual) 0 (0.0-2.0); Blast Cells 0; Eosinophils % (manual) 0 (0-7); Metamyelocytes % 0; Myelocytes % 0; Promyelocytes % 0; Reactive Lymphocytes 0
[2019-12-25 05:49] LABS: Band Neutrophils % (manual) 3; Lymphocytes % (manual) 10 (10.0-50.0); Monocytes % (manual) 3 (0-12)
[2019-12-25] MEDS: ACCU-CHEK COMFORT CURVE STRIP VI SCH ×4 (06:00→17:31)
[2019-12-25] MEDS: InsuLIN REG 1unit/0.01ml Soln (100units/ml) SC SCH ×5 (06:00→19:43)
[2019-12-25] MEDS: HYDROCORTISONE SOD SUCC 100 MG/2ML INJ VIAL IV SCH ×3 (06:23→12:27)
[2019-12-25] MEDS: PIPERACILLIN-TAZOB 2.25GM 50 ML IV SCH ×4 (06:24→17:29)
[2019-12-25] MEDS ORDERED: INSULIN LANTUS (GLARGINE) 1 /0.01ml (100units/ml) SC SCH (07:00)
[2019-12-25] MEDS: DOCUSATE SOD 100 MG CAP PO SCH (10:00)
[2019-12-25] MEDS: DOPamine 1600MCG/ML D5W 250 ML IV SCH (10:15)
[2019-12-25] MEDS: DOBUTamine 1000MCG/ML 250 ML IV SCH ×2 (10:40→22:51)
[2019-12-25] MEDS: LINEZOLID 600MG/300ML 300 ML IV SCH ×2 (10:41→22:51)
[2019-12-25] MEDS: FAMOTIDINE (10MG/ML) 2ML VL IV SCH (10:41)
[2019-12-25] MEDS: AMIODARONE HCL 200 MG TAB PO SCH (10:41)
[2019-12-25] MEDS ORDERED: FUROSEMIDE 40 MG/4 ML VIAL IV ONE ×2 (11:15→18:00)
[2019-12-25] MEDS: SODIUM FERR GLUC 62.5MG/5ML 125 MG in SODIUM CHL 0.9% 100 ML IV SCH (12:16)
[2019-12-25] MEDS: ALBUMIN 25% 100 ML IV SCH ×2 (12:24→20:19)
[2019-12-25] MEDS: NOREPINEPHRINE 8 MG/250ML KIT 250 ML IV SCH (18:46)
[2019-12-26] VITALS (108 sets, daily range): BP systolic 40–169; BP diastolic 19–80
[2019-12-26] MEDS: ACCU-CHEK COMFORT CURVE STRIP VI SCH ×5 (00:12→23:52)
[2019-12-26] MEDS: InsuLIN REG 1unit/0.01ml Soln (100units/ml) SC SCH ×4 (00:12→18:32)
[2019-12-26] MEDS: PIPERACILLIN-TAZOB 2.25GM 50 ML IV SCH ×3 (00:16→12:02)
[2019-12-26] MEDS: IPRATROPIUM BROM 0.5 MG/2.5ML INH SOL NEB SCH ×6 (02:19→22:20)
[2019-12-26] MEDS: ALBUMIN 25% 100 ML IV SCH ×3 (03:05→21:30)
[2019-12-26] MEDS: MIDAZOLAM DRIP 50 mg/50mL 50 ML IV SCH ×6 (03:33→23:22)
[2019-12-26 04:51] LABS: Hematocrit 25.7 % (36.0-46.0); Hemoglobin 8.6 g/dL (12.2-16.2); Mean Corpuscular Hemoglobin 30.9 pg (28.0-32.0); Mean Corpuscular Hgb Conc. 33.3 g/dL (32.0-36.0); Mean Corpuscular Volume 92.8 fL (80.0-100.0); Platelet Count (auto) 341 10^3/uL (140-450); Red Blood Cells 2.77 10^6/uL (4.0-5.20); Red Cell Distribution Width 16.2 % (11.8-14.3); White Blood Cell 18.8 10^3/uL (4.4-10.8)
[2019-12-26 05:08] LABS: Band Neutrophils % (manual) 0; Basophils % (manual) 0 (0.0-2.0); Blast Cells 0; Eosinophils % (manual) 0 (0-7); Metamyelocytes % 0; Myelocytes % 0; Promyelocytes % 0; Reactive Lymphocytes 0
[2019-12-26 05:27] LABS: Albumin 3.4 g/dL (3.4-5.0); BUN/Creatinine Ratio 21.3; Bilirubin, Total 0.5 mg/dL (0.2-1.0); Calcium 7.8 mg/dL (8.5-10.1); Pre Albumin 9.1 mg/dL (20.0-40.0); Total Protein 5.9 g/dL (6.4-8.2)
[2019-12-26 06:48] LABS: Lymphocytes % (manual) 6 (10.0-50.0); Monocytes % (manual) 1 (0-12)
[2019-12-26] MEDS ORDERED: INSULIN LANTUS (GLARGINE) 1 /0.01ml (100units/ml) SC SCH (07:00)
[2019-12-26] MEDS: LINEZOLID 600MG/300ML 300 ML IV SCH ×2 (09:46→21:43)
[2019-12-26] MEDS: FAMOTIDINE (10MG/ML) 2ML VL IV SCH (09:46)
[2019-12-26] MEDS: AMIODARONE HCL 200 MG TAB PO SCH (09:46)
[2019-12-26] MEDS ORDERED: DOCUSATE ORAL LIQUID 100 MG/10 ML UD GT SCH (10:00)
[2019-12-26] MEDS: SODIUM FERR GLUC 62.5MG/5ML 125 MG in SODIUM CHL 0.9% 100 ML IV SCH (12:02)
[2019-12-26] MEDS ORDERED: FUROSEMIDE 40 MG/4 ML VIAL IV ONE ×2 (12:15→23:45)
[2019-12-26] MEDS: ACETYLCYSTEINE 10 %(100MG/ML) SOL 4ML NEB SCH ×3 (14:25→22:20)
[2019-12-26] MEDS: LEVALBUTEROL HCL 1.25 MG/3 ML NEB NEB SCH ×2 (14:25→22:20)
[2019-12-26] MEDS ORDERED: EPINEPHrine HCL 250 ML IV SCH (14:32)
[2019-12-26] MEDS ORDERED: EPINEPHrine HCL 250 ML IV ONE (14:33)
[2019-12-26 14:40] LABS: Hematocrit 20.9 % (36.0-46.0)
[2019-12-26] MEDS ORDERED: EPINEPHrine HCL 1 MG/10 ML SYRG IV ONE (14:45)
[2019-12-26 14:46] LABS: Hemoglobin 6.6 g/dL (12.2-16.2)
[2019-12-26] MEDS: NOREPINEPHRINE 8 MG/250ML KIT 250 ML IV SCH ×2 (15:37→19:43)
[2019-12-26] MEDS: SODIUM CHLORIDE 0.9% 1,000 ML IV SCH (17:00)
[2019-12-26 18:51] LABS: Hemoglobin 11.8 g/dL (12.2-16.2); Platelet Count (auto) 244 10^3/uL (140-450)
[2019-12-26 18:53] LABS: Hematocrit 35.5 % (36.0-46.0); Mean Corpuscular Hemoglobin 29.9 pg (28.0-32.0); Mean Corpuscular Hgb Conc. 33.3 g/dL (32.0-36.0); Mean Corpuscular Volume 89.7 fL (80.0-100.0); Red Blood Cells 3.95 10^6/uL (4.0-5.20); Red Cell Distribution Width 15.8 % (11.8-14.3); White Blood Cell 29.9 10^3/uL (4.4-10.8)
[2019-12-26 18:57] LABS: Basophils % (manual) 0 (0.0-2.0); Blast Cells 0; Eosinophils % (manual) 0 (0-7); Myelocytes % 0; Promyelocytes % 0; Reactive Lymphocytes 0
[2019-12-26] MEDS ORDERED: PHENYLEPHRINE IV 250 ML IV ONE (19:55)
[2019-12-26] MEDS: PHENYLEPHRINE IV 250 ML IV SCH (19:56)
[2019-12-26] MEDS ORDERED: SODIUM CHLORIDE 0.9% 3,000 ML IV ONE (20:00)
[2019-12-26 21:10] LABS: Band Neutrophils % (manual) 4; Lymphocytes % (manual) 5 (10.0-50.0); Metamyelocytes % 3; Monocytes % (manual) 5 (0-12)
[2019-12-26] MEDS ORDERED: LINEZOLID 600MG/300ML 300 ML IV SCH (22:00)
[2019-12-26] MEDS ORDERED: MEROPENEM 1GM IVPB 100 ML IV SCH (22:00)
[2019-12-26 22:13] LABS: Hematocrit 29.6 % (36.0-46.0); Hemoglobin 10.1 g/dL (12.2-16.2)
[2019-12-27] VITALS (42 sets, daily range): BP systolic -13–158; BP diastolic -30–69
[2019-12-27] MEDS: InsuLIN REG 1unit/0.01ml Soln (100units/ml) SC SCH ×2 (00:04→06:00)
[2019-12-27] MEDS: IPRATROPIUM BROM 0.5 MG/2.5ML INH SOL NEB SCH ×2 (02:21→06:31)
[2019-12-27] MEDS: ACETYLCYSTEINE 10 %(100MG/ML) SOL 4ML NEB SCH ×2 (02:21→06:32)
[2019-12-27] MEDS: PHENYLEPHRINE IV 250 ML IV SCH ×2 (04:00→04:16)
[2019-12-27 04:07] LABS: Hemoglobin 10.1 g/dL (12.2-16.2)
[2019-12-27 04:08] LABS: Hematocrit 30.3 % (36.0-46.0)
[2019-12-27] MEDS: ALBUMIN 25% 100 ML IV SCH (06:02)
[2019-12-27] MEDS: ACCU-CHEK COMFORT CURVE STRIP VI SCH (06:09)
[2019-12-27] MEDS: SODIUM CHLORIDE 0.9% 1,000 ML IV SCH (06:10)
[2019-12-27 06:20] LABS: Hematocrit 29.6 % (36.0-46.0); Hemoglobin 9.9 g/dL (12.2-16.2); Mean Corpuscular Hemoglobin 29.8 pg (28.0-32.0); Mean Corpuscular Hgb Conc. 33.4 g/dL (32.0-36.0); Mean Corpuscular Volume 89.3 fL (80.0-100.0); Platelet Count (auto) 170 10^3/uL (140-450); Red Blood Cells 3.32 10^6/uL (4.0-5.20); Red Cell Distribution Width 16.4 % (11.8-14.3); White Blood Cell 27.7 10^3/uL (4.4-10.8)
[2019-12-27 06:25] LABS: Basophils % (manual) 0 (0.0-2.0); Blast Cells 0; Eosinophils % (manual) 0 (0-7); Promyelocytes % 0; Reactive Lymphocytes 0
[2019-12-27] MEDS: LEVALBUTEROL HCL 1.25 MG/3 ML NEB NEB SCH (06:31)
[2019-12-27 06:34] LABS: Calcium 7.1 mg/dL (8.5-10.1); Potassium 3.8 mmol/L (3.5-5.1)
[2019-12-27 06:37] LABS: BUN/Creatinine Ratio 20.5
[2019-12-27] MEDS ORDERED: INSULIN LANTUS (GLARGINE) 1 /0.01ml (100units/ml) SC SCH (07:00)
[2019-12-27 08:00] LABS: Band Neutrophils % (manual) 1; Lymphocytes % (manual) 12 (10.0-50.0); Metamyelocytes % 1; Monocytes % (manual) 1 (0-12); Myelocytes % 1
[2019-12-27] MEDS ORDERED: DIGOXIN (250MCG/ML) 2 ML AMPULE IV ONE (09:30)
[2019-12-27] MEDS ORDERED: MAGNESIUM SULFATE 1GM/100ML 100 ML IV ONE (10:30)
[2019-12-27] MEDS: NOREPINEPHRINE 8 MG/250ML KIT 250 ML IV SCH (10:30)
[2019-12-27 10:36] LABS: Hemoglobin 8.4 g/dL (12.2-16.2)
[2019-12-27 10:38] LABS: Hematocrit 24.7 % (36.0-46.0)
[2019-12-27] MEDS ORDERED: ALBUMIN 25% 100 ML IV ONE (10:47)
[2019-12-27] MEDS ORDERED: SODIUM BICARBONATE 8.4% INJ 50ML SYRINGE IV ONE (10:54)
[2019-12-27] MEDS ORDERED: EPINEPHrine HCL 1 MG/10 ML SYRG IV ONE ×2 (10:54→13:44)
[2019-12-27] MEDS ORDERED: MEROPENEM 500MG IVPB 50 ML IV SCH (22:00)
[2019-12-29] MEDS ORDERED: DIGOXIN 0.125 MG TAB PO SCH (10:00)
== END 2019-12-27 10:55 | disposition expired | DRG 871 ==
LOC: ER 07:55 → EDBD 07:55 → TELE 07:56 → ICU WEST 12-23 06:45
PROVIDERS: ADMIT Hospitalist; ATTEND Internal Medicine
PROC: 5A1945Z Respiratory Ventilation, 24-96 Consecutive Hours (ICD-10-PCS; principal; 2019-12-23)
PROC: 0BH17EZ Insertion of Endotracheal Airway into Trachea, Via Natural or Artificial Opening (ICD-10-PCS; 2019-12-23)
PROC: 02HV33Z Insertion of Infusion Device into Superior Vena Cava, Percutaneous Approach (ICD-10-PCS; 2019-12-23)
PROC: 0W9B3ZZ Drainage of Left Pleural Cavity, Percutaneous Approach (ICD-10-PCS; 2019-12-24)
PROC: 30233N1 Transfusion of Nonautologous Red Blood Cells into Peripheral Vein, Percutaneous Approach (ICD-10-PCS; 2019-12-24)
PROC: 04HY32Z Insertion of Monitoring Device into Lower Artery, Percutaneous Approach (ICD-10-PCS; 2019-12-26)
PROC: 0W9B30Z Drainage of Left Pleural Cavity with Drainage Device, Percutaneous Approach (ICD-10-PCS; 2019-12-26)
PROC: 5A12012 Performance of Cardiac Output, Single, Manual (ICD-10-PCS; 2019-12-27)
DX: A41.9 Sepsis, unspecified organism (principal); E43 Unspecified severe protein-calorie malnutrition; J96.01 Acute respiratory failure with hypoxia; N17.0 Acute kidney failure with tubular necrosis; R65.21 Severe sepsis with septic shock; I21.A1 Myocardial infarction type 2; I50.33 Acute on chronic diastolic (congestive) heart failure; J86.9 Pyothorax without fistula; G93.41 Metabolic encephalopathy; J15.9 Unspecified bacterial pneumonia; J44.0 Chronic obstructive pulmonary disease with (acute) lower respiratory infection; M84.48XA Pathological fracture, other site, initial encounter for fracture; N18.4 Chronic kidney disease, stage 4 (severe); J90 Pleural effusion, not elsewhere classified; E87.4 Mixed disorder of acid-base balance; J94.2 Hemothorax; I13.0 Hypertensive heart and chronic kidney disease with heart failure and stage 1 through stage 4 chronic kidney disease, or unspecified chronic kidney disease; I42.9 Cardiomyopathy, unspecified; N39.0 Urinary tract infection, site not specified; D68.69 Other thrombophilia; E87.1 Hypo-osmolality and hyponatremia; J98.11 Atelectasis; D63.8 Anemia in other chronic diseases classified elsewhere; E87.5 Hyperkalemia; I48.0 Paroxysmal atrial fibrillation; I50.82 Biventricular heart failure; K22.2 Esophageal obstruction; M81.0 Age-related osteoporosis without current pathological fracture; I49.5 Sick sinus syndrome; Z20.828 Contact with and (suspected) exposure to other viral communicable diseases; E11.22 Type 2 diabetes mellitus with diabetic chronic kidney disease; K21.9 Gastro-esophageal reflux disease without esophagitis; E11.649 Type 2 diabetes mellitus with hypoglycemia without coma; E86.0 Dehydration; Z68.26 Body mass index [BMI] 26.0-26.9, adult; Z90.49 Acquired absence of other specified parts of digestive tract; Z95.0 Presence of cardiac pacemaker
CPT/HCPCS: 32555; 36415; 36600; 71045; 71046; 71250; 76775; 80048; 80053; 80202; 81001; 82040; 82553; 82570; 82805; 82962; 83605; 83615; 83735; 83880; 83935; 84100; 84132; 84156; 84300; 84443; 84484; 85007; 85014; 85018; 85025; 85027; 85379; 85610; 85730; 86850; 86900; 86901; 86920; 87040; 87070; 87077; 87081; 87086; 87186; 87205; 89051; 92950; 93005; 93306; 94002; 94003; 94640; 99291; G0378; J0171; J0330; J0696; J1815; J2185; J2250; J2405; J2543; J3480; J3490; J7060; P9047